=== PATIENT | male | born 1940 | race African-American/Black ===

== ENCOUNTER 2021-05-05 15:22 | Inpatient (IN) ==
[2021-05-05] MEDS ORDERED: SODIUM CHLORIDE 0.9% 1,000 ML IV STA (18:26)
[2021-05-05] MEDS ORDERED: PANTOPRAZOLE 40 MG VIAL IV STA (18:26)
[2021-05-05] MEDS ORDERED: ONDANSETRON 4 MG/2 ML VIAL IV STA (18:26)
[2021-05-05 18:33] LABS: Basophils # 0.1 10*3/uL (0.0-0.2); Basophils % 0.7 % (0.0-0.8); Eosinophils # 0.1 10*3/uL (0.0-0.87); Eosinophils % 1.1 % (0.00-10.9); Hematocrit 29.1 VOL% (42.0-52.0); Hemoglobin 9.2 GM/DL (14.0-18.0); Immature Granulocytes % 0.9 %; Immature Granulocytes Absolute 0.07 #; Lymphocytes # 1.2 10*3/uL (1.4-4.0); Lymphocytes % 15.3 % (21.2-54.2); Mean Corpuscular HGB Conc 31.6 GM/DL (32-36); Mean Corpuscular Volume 85.3 FL (87-102); Mean Platelet Volume 11.4 FL (9.6-12.0); Monocytes % 13.5 % (1.7-12.7); Neutrophils % 68.5 % (38.7-73.9); Platelet Count 230 T/CUMM (130-400); Red Blood Count 3.41 MC/CUMM (3.8-5.5); Red Cell Distribution Width 16.4 % (9.3-17.3)
[2021-05-05 18:51] LABS: Albumin 3.3 G/DL (3.4-5.0); Bilirubin,Total 0.9 MG/DL (0.2-1.0); Calcium 10.2 MG/DL (8.5-10.1); Osmolality,Calculated 313.1 MOS/KG (273-304); Potassium 3.6 MMOL/L (3.5-5.1); Total Protein 8.5 G/DL (6.4-8.2)
[2021-05-05] MEDS ORDERED: MAGNESIUM SULF RIDER 2 GM/50 ML PREMIX IV PRN (19:50)
[2021-05-05] MEDS ORDERED: MAGNESIUM SULF RIDER 4 GM/100 ML PREMIX IV PRN (19:50)
[2021-05-05] MEDS ORDERED: MORPHINE 4 MG/1 ML VIAL IV PRN (20:05)
[2021-05-05] MEDS ORDERED: hydrALAZINE 20 MG/1 ML VIAL IV STA (20:21)
[2021-05-05] MEDS ORDERED: BENZOCAINE/BUTAMBEN/TETRACAINE SPRAY 20 GM CAN TOP ONE (20:37)
[2021-05-05] MEDS: ONDANSETRON 4 MG/2 ML VIAL IV PRN (21:30)
[2021-05-05 21:41] LABS: Bilirubin,Urine Negative (Negative); Blood, Urine Negative (Negative); Glucose,Urine (UA) 50 mg/dL (Negative); Ketones,Urine Negative (Negative); Mucus,Urine Occasional /LPF (Occasional); Nitrite,Urine Negative (Negative); Protein,Urine >=500 MG/DL; Squamous Epithelial Cell,Urine Occasional /HPF (0-10); Urine Appearance CLEAR (Clear); Urine Color Yellow (Yellow); Urine Urobilinogen < 2.0 EU/DL (0.2-1.0)
[2021-05-06] MEDS: LACTATED RINGERS 1,000 ML IV SCH ×3 (00:12→18:37)
[2021-05-06 06:52] LABS: Basophils % 0.3 % (0.0-0.8); Eosinophils # 0.1 10*3/uL (0.0-0.87); Eosinophils % 0.7 % (0.00-10.9); Hematocrit 24.6 VOL% (42.0-52.0); Hemoglobin 7.8 GM/DL (14.0-18.0); Immature Granulocytes % 0.6 %; Immature Granulocytes Absolute 0.04 #; Lymphocytes # 0.8 10*3/uL (1.4-4.0); Lymphocytes % 10.9 % (21.2-54.2); Mean Corpuscular HGB Conc 31.7 GM/DL (32-36); Mean Corpuscular Volume 85.4 FL (87-102); Mean Platelet Volume 11.5 FL (9.6-12.0); Monocytes % 8.5 % (1.7-12.7); Platelet Count 193 T/CUMM (130-400); Red Blood Count 2.88 MC/CUMM (3.8-5.5); Red Cell Distribution Width 16.6 % (9.3-17.3); White Blood Count 7.1 T/CUMM (4-12)
[2021-05-06 06:56] LABS: Calcium 9.2 MG/DL (8.5-10.1); Osmolality,Calculated 313.7 MOS/KG (273-304); Potassium 3.1 MMOL/L (3.5-5.1)
[2021-05-06] MEDS ORDERED: DEXTROSE 50% 25 GM/50 ML VIAL IV PRN (07:54)
[2021-05-06] MEDS ORDERED: GLUCAGON 1 MG VIAL IM PRN (07:54)
[2021-05-06] MEDS: PANTOPRAZOLE 40 MG VIAL IV SCH (08:51)
[2021-05-06] MEDS: INSULIN LISPRO 100 UNIT/ML SUBCUT SCH ×3 (09:17→18:37)
[2021-05-06] MEDS ORDERED: ACETAMINOPHEN 325 MG TABLET PO PRN (09:40)
[2021-05-06] MEDS ORDERED: ALBUTEROL/IPRATROPIUM 3 ML NEB RESP TX PRN (09:40)
[2021-05-06] MEDS: POTASSIUM CHLORIDE RIDER 10 MEQ/100 ML PREMIX IV PRN ×2 (11:43→14:37)
[2021-05-06] MEDS: POTASSIUM CHLORIDE INJ 20 MEQ in LACTATED RINGERS 1,000 ML IV SCH ×2 (12:05→18:38)
[2021-05-06] MEDS: hydrALAZINE 20 MG/1 ML VIAL IV PRN (14:40)
[2021-05-06] MEDS: TERAZOSIN 5 MG CAPSULE PO SCH (20:15)
[2021-05-06] MEDS: METOPROLOL TARTRATE 25 MG TABLET PO SCH (20:15)
[2021-05-07] MEDS: INSULIN LISPRO 100 UNIT/ML SUBCUT SCH ×4 (00:49→18:08)
[2021-05-07] MEDS: hydrALAZINE 20 MG/1 ML VIAL IV PRN (00:55)
[2021-05-07] MEDS: HYDROmorphone 2 MG/1 ML VIAL IV PRN ×3 (02:15→23:08)
[2021-05-07] MEDS: LACTATED RINGERS 1,000 ML IV SCH ×4 (03:26→19:05)
[2021-05-07 05:16] LABS: Basophils % 0.4 % (0.0-0.8); Eosinophils # 0.2 10*3/uL (0.0-0.87); Eosinophils % 2.2 % (0.00-10.9); Hematocrit 25.2 VOL% (42.0-52.0); Hemoglobin 7.7 GM/DL (14.0-18.0); Immature Granulocytes % 0.3 %; Immature Granulocytes Absolute 0.03 #; Lymphocytes # 0.9 10*3/uL (1.4-4.0); Lymphocytes % 9.1 % (21.2-54.2); Mean Corpuscular HGB Conc 30.6 GM/DL (32-36); Mean Corpuscular Volume 87.8 FL (87-102); Mean Platelet Volume 10.8 FL (9.6-12.0); Monocytes % 7.5 % (1.7-12.7); Neutrophils % 80.5 % (38.7-73.9); Platelet Count 173 T/CUMM (130-400); Red Blood Count 2.87 MC/CUMM (3.8-5.5); Red Cell Distribution Width 16.9 % (9.3-17.3); White Blood Count 9.3 T/CUMM (4-12)
[2021-05-07] MEDS: ENOXAPARIN 40 MG/0.4 ML SYRINGE SUBCUT SCH (05:16)
[2021-05-07] MEDS: POTASSIUM CHLORIDE INJ 20 MEQ in LACTATED RINGERS 1,000 ML IV SCH ×2 (05:20→22:41)
[2021-05-07 05:32] LABS: Calcium 9.2 MG/DL (8.5-10.1); Osmolality,Calculated 309.6 MOS/KG (273-304); Potassium 3.7 MMOL/L (3.5-5.1)
[2021-05-07 05:36] LABS: Risk Ratio 2.63
[2021-05-07] MEDS ORDERED: amLODIPine 10 MG TABLET PO SCH (09:00)
[2021-05-07] MEDS: POTASSIUM CHLORIDE RIDER 10 MEQ/100 ML PREMIX IV PRN ×2 (10:08→11:54)
[2021-05-07] MEDS: PANTOPRAZOLE 40 MG VIAL IV SCH (10:08)
[2021-05-07] MEDS: ASPIRIN EC 81 MG TABLET PO SCH (10:10)
[2021-05-07] MEDS: METOPROLOL TARTRATE 25 MG TABLET PO SCH (10:10)
[2021-05-07] MEDS: allopurinoL 100 MG TABLET PO SCH (10:11)
[2021-05-07] MEDS: METOPROLOL TARTRATE 5 MG/5 ML VIAL IV SCH ×2 (11:54→18:09)
[2021-05-07] MEDS: ONDANSETRON 4 MG/2 ML VIAL IV PRN (13:26)
[2021-05-07] MEDS: TERAZOSIN 5 MG CAPSULE PO SCH (23:39)
[2021-05-08] MEDS: INSULIN LISPRO 100 UNIT/ML SUBCUT SCH ×4 (00:02→19:33)
[2021-05-08] MEDS: METOPROLOL TARTRATE 5 MG/5 ML VIAL IV SCH ×4 (00:06→19:33)
[2021-05-08] MEDS: LACTATED RINGERS 1,000 ML IV SCH ×4 (04:14→19:23)
[2021-05-08] MEDS: ENOXAPARIN 40 MG/0.4 ML SYRINGE SUBCUT SCH (05:14)
[2021-05-08 05:55] LABS: Basophils % 0.3 % (0.0-0.8); Eosinophils # 0.3 10*3/uL (0.0-0.87); Eosinophils % 5.9 % (0.00-10.9); Hematocrit 25.4 VOL% (42.0-52.0); Hemoglobin 7.8 GM/DL (14.0-18.0); Immature Granulocytes % 0.9 %; Immature Granulocytes Absolute 0.05 #; Lymphocytes # 0.5 10*3/uL (1.4-4.0); Lymphocytes % 8.8 % (21.2-54.2); Mean Corpuscular HGB Conc 30.7 GM/DL (32-36); Mean Corpuscular Volume 88.5 FL (87-102); Mean Platelet Volume 11.2 FL (9.6-12.0); Monocytes % 12.5 % (1.7-12.7); Neutrophils % 71.6 % (38.7-73.9); Platelet Count 183 T/CUMM (130-400); Red Blood Count 2.87 MC/CUMM (3.8-5.5); Red Cell Distribution Width 16.5 % (9.3-17.3); White Blood Count 5.8 T/CUMM (4-12)
[2021-05-08 06:11] LABS: Calcium 9.3 MG/DL (8.5-10.1); Osmolality,Calculated 311.4 MOS/KG (273-304); Potassium 4.4 MMOL/L (3.5-5.1)
[2021-05-08] MEDS: PANTOPRAZOLE 40 MG VIAL IV SCH (09:25)
[2021-05-08] MEDS: POTASSIUM CHLORIDE INJ 20 MEQ in LACTATED RINGERS 1,000 ML IV SCH (09:26)
[2021-05-08] MEDS: ASPIRIN CHEW 81 MG TABLET PO SCH (13:57)
[2021-05-08] MEDS: allopurinoL 100 MG TABLET PO SCH (13:57)
[2021-05-08] MEDS: ASPIRIN EC 81 MG TABLET PO SCH (14:30)
[2021-05-08] MEDS: FAT EMULSION 20% 250 ML IV SCH (16:49)
[2021-05-08] MEDS ORDERED: [UNRECOGNIZED DRUG - OTHER] IV SCH (17:00)
[2021-05-08] MEDS ORDERED: ZINC IV SCH (17:00)
[2021-05-08] MEDS ORDERED: MANGANESE IV SCH (17:00)
[2021-05-08] MEDS ORDERED: COPPER IV SCH (17:00)
[2021-05-08] MEDS ORDERED: INSULIN REGULAR IV SCH (17:00)
[2021-05-08] MEDS ORDERED: SELENIUM IV SCH (17:00)
[2021-05-08] MEDS: TERAZOSIN 5 MG CAPSULE PO SCH (21:10)
[2021-05-08] MEDS: HYDROmorphone 2 MG/1 ML VIAL IV PRN (23:59)
[2021-05-09] MEDS: METOPROLOL TARTRATE 5 MG/5 ML VIAL IV SCH ×4 (00:01→17:00)
[2021-05-09] MEDS: INSULIN LISPRO 100 UNIT/ML SUBCUT SCH ×4 (00:01→17:00)
[2021-05-09] MEDS: ENOXAPARIN 40 MG/0.4 ML SYRINGE SUBCUT SCH (05:08)
[2021-05-09] MEDS: LACTATED RINGERS 1,000 ML IV SCH ×3 (06:25→20:09)
[2021-05-09 07:18] LABS: Basophils % 0.3 % (0.0-0.8); Eosinophils # 0.2 10*3/uL (0.0-0.87); Eosinophils % 3.9 % (0.00-10.9); Hematocrit 27.2 VOL% (42.0-52.0); Hemoglobin 8.3 GM/DL (14.0-18.0); Immature Granulocytes % 0.3 %; Immature Granulocytes Absolute 0.02 #; Lymphocytes % 16.5 % (21.2-54.2); Mean Corpuscular HGB Conc 30.5 GM/DL (32-36); Mean Corpuscular Volume 87.7 FL (87-102); Monocytes % 10.6 % (1.7-12.7); Neutrophils % 68.4 % (38.7-73.9); Platelet Count 194 T/CUMM (130-400); Red Cell Distribution Width 16.5 % (9.3-17.3); White Blood Count 6.1 T/CUMM (4-12)
[2021-05-09 07:40] LABS: Calcium 9.2 MG/DL (8.5-10.1); Eosinophils 7 % (0-10); Hypochromasia 2+; Lymphocytes 12 % (20-55); Microcytosis 1+; Osmolality,Calculated 307.6 MOS/KG (273-304); Platelet Estimate Adequate; Potassium 3.8 MMOL/L (3.5-5.1); Segmented Neutrophils 69 % (50-85); Total Cells Counted 100
[2021-05-09] MEDS: allopurinoL 100 MG TABLET PO SCH (09:29)
[2021-05-09] MEDS: ASPIRIN CHEW 81 MG TABLET PO SCH (09:29)
[2021-05-09] MEDS: PANTOPRAZOLE 40 MG VIAL IV SCH (09:30)
[2021-05-09] MEDS: FAT EMULSION 20% 250 ML IV SCH (14:37)
[2021-05-09] MEDS ORDERED: INSULIN REGULAR IV SCH (17:00)
[2021-05-09] MEDS ORDERED: [UNRECOGNIZED DRUG - OTHER] IV SCH (17:00)
[2021-05-09] MEDS ORDERED: COPPER IV SCH (17:00)
[2021-05-09] MEDS ORDERED: SELENIUM IV SCH (17:00)
[2021-05-09] MEDS ORDERED: MANGANESE IV SCH (17:00)
[2021-05-09] MEDS ORDERED: ZINC IV SCH (17:00)
[2021-05-09] MEDS: TERAZOSIN 5 MG CAPSULE PO SCH (20:13)
[2021-05-10] MEDS: INSULIN LISPRO 100 UNIT/ML SUBCUT SCH ×4 (00:53→17:50)
[2021-05-10] MEDS: METOPROLOL TARTRATE 5 MG/5 ML VIAL IV SCH ×4 (00:54→17:51)
[2021-05-10] MEDS: LACTATED RINGERS 1,000 ML IV SCH (01:59)
[2021-05-10] MEDS: ENOXAPARIN 40 MG/0.4 ML SYRINGE SUBCUT SCH (04:51)
[2021-05-10 05:27] LABS: Basophils % 0.3 % (0.0-0.8); Eosinophils # 0.2 10*3/uL (0.0-0.87); Eosinophils % 3.9 % (0.00-10.9); Hematocrit 24.1 VOL% (42.0-52.0); Hemoglobin 7.7 GM/DL (14.0-18.0); Immature Granulocytes % 0.5 %; Immature Granulocytes Absolute 0.03 #; Lymphocytes # 1.4 10*3/uL (1.4-4.0); Lymphocytes % 22.4 % (21.2-54.2); Mean Corpuscular Volume 85.8 FL (87-102); Mean Platelet Volume 10.7 FL (9.6-12.0); Monocytes % 10.6 % (1.7-12.7); Neutrophils % 62.3 % (38.7-73.9); Platelet Count 178 T/CUMM (130-400); Red Blood Count 2.81 MC/CUMM (3.8-5.5); Red Cell Distribution Width 16.2 % (9.3-17.3); White Blood Count 6.1 T/CUMM (4-12)
[2021-05-10 05:38] LABS: Calcium 8.9 MG/DL (8.5-10.1); Potassium 3.5 MMOL/L (3.5-5.1)
[2021-05-10 05:59] LABS: Hypochromasia 2+; Target Cells Slight
[2021-05-10 06:00] LABS: Microcytosis 1+; Platelet Estimate Adequate; Polychromasia Slight
[2021-05-10] MEDS ORDERED: SODIUM CHLOR 0.45% KCL 20 MEQ 20 MEQ/1,000 ML BAG IV SCH (07:30)
[2021-05-10] MEDS: allopurinoL 100 MG TABLET PO SCH (08:45)
[2021-05-10] MEDS: ASPIRIN CHEW 81 MG TABLET PO SCH (08:45)
[2021-05-10] MEDS: PANTOPRAZOLE 40 MG VIAL IV SCH (08:45)
[2021-05-10] MEDS: SODIUM CHLORIDE 0.45% 1,000 ML IV SCH (11:44)
[2021-05-10] MEDS: FAT EMULSION 20% 250 ML IV SCH (13:34)
[2021-05-10] MEDS: TERAZOSIN 5 MG CAPSULE PO SCH (21:00)
[2021-05-10] MEDS: HYDROmorphone 2 MG/1 ML VIAL IV PRN (21:06)
[2021-05-11] MEDS: METOPROLOL TARTRATE 5 MG/5 ML VIAL IV SCH ×4 (00:44→17:55)
[2021-05-11] MEDS: INSULIN LISPRO 100 UNIT/ML SUBCUT SCH ×4 (00:56→17:55)
[2021-05-11] MEDS: ENOXAPARIN 40 MG/0.4 ML SYRINGE SUBCUT SCH (04:56)
[2021-05-11] MEDS: SODIUM CHLORIDE 0.45% 1,000 ML IV SCH (05:07)
[2021-05-11 05:58] LABS: Basophils % 0.3 % (0.0-0.8); Eosinophils # 0.3 10*3/uL (0.0-0.87); Eosinophils % 4.2 % (0.00-10.9); Hematocrit 24.8 VOL% (42.0-52.0); Hemoglobin 7.7 GM/DL (14.0-18.0); Immature Granulocytes % 0.8 %; Immature Granulocytes Absolute 0.05 #; Lymphocytes # 1.9 10*3/uL (1.4-4.0); Lymphocytes % 30.9 % (21.2-54.2); Mean Corpuscular Volume 85.8 FL (87-102); Monocytes % 8.6 % (1.7-12.7); Neutrophils % 55.2 % (38.7-73.9); Platelet Count 201 T/CUMM (130-400); Red Blood Count 2.89 MC/CUMM (3.8-5.5); Red Cell Distribution Width 15.9 % (9.3-17.3); White Blood Count 6.3 T/CUMM (4-12)
[2021-05-11 06:20] LABS: Calcium 8.4 MG/DL (8.5-10.1); Osmolality,Calculated 300.8 MOS/KG (273-304); Potassium 3.1 MMOL/L (3.5-5.1)
[2021-05-11] MEDS: ROSUVASTATIN 20 MG TABLET PO SCH (09:17)
[2021-05-11] MEDS: allopurinoL 100 MG TABLET PO SCH (09:17)
[2021-05-11] MEDS: ASPIRIN CHEW 81 MG TABLET PO SCH (09:17)
[2021-05-11] MEDS: PANTOPRAZOLE 40 MG VIAL IV SCH (09:17)
[2021-05-11] MEDS ORDERED: POTASSIUM CHLORIDE 20 MEQ TABLET PO ONE (09:28)
[2021-05-11] MEDS: ONDANSETRON 4 MG/2 ML VIAL IV PRN (14:59)
[2021-05-11] MEDS: HYDROmorphone 2 MG/1 ML VIAL IV PRN (16:29)
[2021-05-11] MEDS: LACTATED RINGERS 1,000 ML IV SCH (17:55)
[2021-05-11] MEDS: POLYETHYLENE GLYCOL POWDER 17 GM PACK PO SCH (18:21)
[2021-05-11] MEDS: TERAZOSIN 5 MG CAPSULE PO SCH (21:46)
[2021-05-11] MEDS: DOCUSATE SODIUM 100 MG CAPSULE PO SCH (21:47)
[2021-05-12] MEDS: INSULIN LISPRO 100 UNIT/ML SUBCUT SCH ×4 (00:51→17:29)
[2021-05-12] MEDS: METOPROLOL TARTRATE 5 MG/5 ML VIAL IV SCH ×4 (00:52→17:30)
[2021-05-12] MEDS: LACTATED RINGERS 1,000 ML IV SCH (01:33)
[2021-05-12] MEDS: ENOXAPARIN 40 MG/0.4 ML SYRINGE SUBCUT SCH (04:39)
[2021-05-12 05:36] LABS: Basophils % 0.3 % (0.0-0.8); Eosinophils # 0.1 10*3/uL (0.0-0.87); Eosinophils % 1.6 % (0.00-10.9); Hematocrit 23.5 VOL% (42.0-52.0); Hemoglobin 7.3 GM/DL (14.0-18.0); Immature Granulocytes % 0.6 %; Immature Granulocytes Absolute 0.04 #; Lymphocytes # 1.3 10*3/uL (1.4-4.0); Lymphocytes % 18.1 % (21.2-54.2); Mean Corpuscular HGB Conc 31.1 GM/DL (32-36); Mean Corpuscular Volume 86.4 FL (87-102); Mean Platelet Volume 11.6 FL (9.6-12.0); Monocytes % 10.1 % (1.7-12.7); Neutrophils % 69.3 % (38.7-73.9); Platelet Count 209 T/CUMM (130-400); Red Blood Count 2.72 MC/CUMM (3.8-5.5); Red Cell Distribution Width 15.9 % (9.3-17.3); White Blood Count 6.9 T/CUMM (4-12)
[2021-05-12 05:47] LABS: Calcium 8.5 MG/DL (8.5-10.1); Potassium 3.1 MMOL/L (3.5-5.1)
[2021-05-12 06:51] LABS: Hypochromasia 2+; Microcytosis Slight; Platelet Estimate Adequate; Target Cells 1+
[2021-05-12] MEDS: POLYETHYLENE GLYCOL POWDER 17 GM PACK PO SCH (09:07)
[2021-05-12] MEDS: DOCUSATE SODIUM 100 MG CAPSULE PO SCH ×2 (09:11→21:07)
[2021-05-12] MEDS: ASPIRIN CHEW 81 MG TABLET PO SCH (09:11)
[2021-05-12] MEDS: ROSUVASTATIN 20 MG TABLET PO SCH (09:11)
[2021-05-12] MEDS: allopurinoL 100 MG TABLET PO SCH (09:12)
[2021-05-12] MEDS: PANTOPRAZOLE 40 MG VIAL IV SCH (09:12)
[2021-05-12] MEDS: POTASSIUM CHLORIDE 20 MEQ TABLET PO PRN ×4 (15:39→19:02)
[2021-05-12] MEDS: TERAZOSIN 5 MG CAPSULE PO SCH (21:07)
[2021-05-13] MEDS: INSULIN LISPRO 100 UNIT/ML SUBCUT SCH ×5 (00:52→23:57)
[2021-05-13] MEDS: METOPROLOL TARTRATE 5 MG/5 ML VIAL IV SCH ×4 (00:53→17:50)
[2021-05-13] MEDS: ENOXAPARIN 40 MG/0.4 ML SYRINGE SUBCUT SCH (04:07)
[2021-05-13] MEDS: ROSUVASTATIN 20 MG TABLET PO SCH (08:47)
[2021-05-13] MEDS: ASPIRIN CHEW 81 MG TABLET PO SCH (08:47)
[2021-05-13] MEDS: allopurinoL 100 MG TABLET PO SCH (08:47)
[2021-05-13] MEDS: POLYETHYLENE GLYCOL POWDER 17 GM PACK PO SCH (08:48)
[2021-05-13] MEDS: PANTOPRAZOLE 40 MG VIAL IV SCH (08:48)
[2021-05-13] MEDS: DOCUSATE SODIUM 100 MG CAPSULE PO SCH ×2 (08:48→21:04)
[2021-05-13] MEDS: hydrALAZINE 20 MG/1 ML VIAL IV PRN (11:42)
[2021-05-13 16:34] LABS: Basophils % 0.3 % (0.0-0.8); Eosinophils # 0.1 10*3/uL (0.0-0.87); Eosinophils % 1.2 % (0.00-10.9); Hematocrit 29.3 VOL% (42.0-52.0); Hemoglobin 8.8 GM/DL (14.0-18.0); Immature Granulocytes % 1.4 %; Immature Granulocytes Absolute 0.13 #; Lymphocytes # 1.4 10*3/uL (1.4-4.0); Lymphocytes % 14.9 % (21.2-54.2); Mean Corpuscular Volume 89.3 FL (87-102); Mean Platelet Volume 10.9 FL (9.6-12.0); Monocytes % 10.7 % (1.7-12.7); Neutrophils % 71.5 % (38.7-73.9); Platelet Count 140 T/CUMM (130-400); Red Blood Count 3.28 MC/CUMM (3.8-5.5); Red Cell Distribution Width 16.5 % (9.3-17.3); White Blood Count 9.3 T/CUMM (4-12)
[2021-05-13 16:53] LABS: Calcium 8.9 MG/DL (8.5-10.1); Osmolality,Calculated 288.4 MOS/KG (273-304); Potassium 4.2 MMOL/L (3.5-5.1)
[2021-05-13] MEDS: TERAZOSIN 5 MG CAPSULE PO SCH (21:05)
[2021-05-14 05:06] LABS: Basophils % 0.2 % (0.0-0.8); Eosinophils # 0.1 10*3/uL (0.0-0.87); Eosinophils % 1.4 % (0.00-10.9); Hemoglobin 7.3 GM/DL (14.0-18.0); Immature Granulocytes % 0.7 %; Immature Granulocytes Absolute 0.07 #; Lymphocytes # 1.1 10*3/uL (1.4-4.0); Lymphocytes % 11.8 % (21.2-54.2); Mean Corpuscular HGB Conc 31.7 GM/DL (32-36); Mean Corpuscular Volume 84.2 FL (87-102); Mean Platelet Volume 11.8 FL (9.6-12.0); Monocytes % 10.4 % (1.7-12.7); Neutrophils % 75.5 % (38.7-73.9); Platelet Count 203 T/CUMM (130-400); Red Blood Count 2.73 MC/CUMM (3.8-5.5); Red Cell Distribution Width 15.7 % (9.3-17.3); White Blood Count 9.6 T/CUMM (4-12)
[2021-05-14 05:33] LABS: Bilirubin,Total 0.6 MG/DL (0.2-1.0); Calcium 8.3 MG/DL (8.5-10.1); Osmolality,Calculated 292.3 MOS/KG (273-304); Potassium 3.6 MMOL/L (3.5-5.1)
[2021-05-14] MEDS: INSULIN LISPRO 100 UNIT/ML SUBCUT SCH ×2 (05:50→12:33)
[2021-05-14] MEDS: METOPROLOL TARTRATE 5 MG/5 ML VIAL IV SCH ×2 (05:50)
[2021-05-14] MEDS: ENOXAPARIN 40 MG/0.4 ML SYRINGE SUBCUT SCH (08:33)
[2021-05-14] MEDS: POTASSIUM CHLORIDE 20 MEQ TABLET PO PRN ×2 (08:33→10:01)
[2021-05-14] MEDS: POLYETHYLENE GLYCOL POWDER 17 GM PACK PO SCH (08:34)
[2021-05-14] MEDS: PANTOPRAZOLE 40 MG VIAL IV SCH (08:34)
[2021-05-14] MEDS: allopurinoL 100 MG TABLET PO SCH (08:34)
[2021-05-14] MEDS: DOCUSATE SODIUM 100 MG CAPSULE PO SCH (08:34)
[2021-05-14] MEDS: ASPIRIN CHEW 81 MG TABLET PO SCH (08:34)
[2021-05-14] MEDS: ROSUVASTATIN 20 MG TABLET PO SCH (08:35)
[2021-05-14 12:25] VITALS: BP 155/54
== END 2021-05-14 15:05 | disposition home health service (06) | DRG 389 ==
LOC: N.ED 15:22 → N.EDINP 20:02 → N.3E 21:30
PROVIDERS: ADMIT Surgery; ATTEND Surgery

== ENCOUNTER 2021-07-15 19:21 | Inpatient (IN) ==
[2021-07-16 00:47] LABS: Basophils # 0.1 10*3/uL (0.0-0.2); Basophils % 0.9 % (0.0-0.8); Eosinophils # 0.1 10*3/uL (0.0-0.87); Eosinophils % 0.9 % (0.00-10.9); Hematocrit 23.2 VOL% (42.0-52.0); Hemoglobin 7.1 GM/DL (14.0-18.0); Immature Granulocytes % 0.4 %; Immature Granulocytes Absolute 0.02 #; Lymphocytes # 0.8 10*3/uL (1.4-4.0); Lymphocytes % 13.9 % (21.2-54.2); Mean Corpuscular HGB Conc 30.6 GM/DL (32-36); Mean Corpuscular Volume 83.8 FL (87-102); Mean Platelet Volume 11.5 FL (9.6-12.0); Neutrophils % 70.9 % (38.7-73.9); Platelet Count 242 T/CUMM (130-400); Red Blood Count 2.77 MC/CUMM (3.8-5.5); Red Cell Distribution Width 19.7 % (9.3-17.3); White Blood Count 5.5 T/CUMM (4-12)
[2021-07-16 01:10] LABS: Albumin 2.8 G/DL (3.4-5.0); Bilirubin,Total 0.5 MG/DL (0.20-1.00); Osmolality,Calculated 325.4 MOS/KG (273-304); Potassium 4.7 MMOL/L (3.5-5.1); Total Protein 7.3 G/DL (6.4-8.2)
[2021-07-16] MEDS ORDERED: GLUCAGON 1 MG VIAL IM PRN (03:06)
[2021-07-16] MEDS ORDERED: DEXTROSE 50% 25 GM/50 ML VIAL IV PRN (03:06)
[2021-07-16] MEDS ORDERED: ACETAMINOPHEN 325 MG TABLET PO PRN (03:06)
[2021-07-16] MEDS ORDERED: ONDANSETRON 4 MG/2 ML VIAL IV PRN (03:06)
[2021-07-16] MEDS ORDERED: SODIUM PHOSPHATE ENEMA 133 ML BOTTLE RECTAL ONE (04:40)
[2021-07-16] MEDS ORDERED: CLOPIDOGREL 75 MG TABLET PO SCH (09:00)
[2021-07-16] MEDS: ROSUVASTATIN 20 MG TABLET PO SCH (09:04)
[2021-07-16] MEDS: METOPROLOL TARTRATE 25 MG TABLET PO SCH ×2 (09:05→20:44)
[2021-07-16] MEDS: AMIODARONE 200 MG TABLET PO SCH ×2 (09:05→20:44)
[2021-07-16] MEDS: amLODIPine 10 MG TABLET PO SCH (09:06)
[2021-07-16] MEDS: PANTOPRAZOLE 40 MG TABLET PO SCH (09:06)
[2021-07-16] MEDS: APIXABAN 2.5 MG TABLET PO SCH (09:06)
[2021-07-16] MEDS: allopurinoL 100 MG TABLET PO SCH (09:07)
[2021-07-16] MEDS: INSULIN REGULAR 100 UNIT/ML SUBCUT SCH ×4 (09:11→20:45)
[2021-07-16] MEDS: DOCUSATE SODIUM 100 MG CAPSULE PO SCH ×2 (09:11→20:44)
[2021-07-16] MEDS: LACTULOSE 20 GM/30 ML UDCUP PO SCH ×4 (09:12→18:42)
[2021-07-16] MEDS: ASCORBIC ACID 500 MG TABLET PO SCH ×2 (12:46→20:44)
[2021-07-16] MEDS: POLYETHYLENE GLYCOL POWDER 17 GM PACK PO SCH (12:46)
[2021-07-16] MEDS ORDERED: SODIUM CHLORIDE 0.9% 1,000 ML IV PRN (13:56)
[2021-07-16] MEDS ORDERED: FUROSEMIDE 40 MG/4 ML VIAL IV ONE (13:58)
[2021-07-16 16:49] LABS: Bilirubin,Urine Negative (Negative); Blood, Urine Negative (Negative); Glucose,Urine (UA) 50 mg/dL (Negative); Ketones,Urine Negative (Negative); Nitrite,Urine Negative (Negative); Protein,Urine 100 MG/DL; RBC,Urine 1 /HPF (0-4); Squamous Epithelial Cell,Urine Occasional /HPF (0-10); Urine Appearance Slightly Hazy (Clear); Urine Color Yellow (Yellow); Urine Specific Gravity 1.014 (1.001-1.035); Urine Urobilinogen < 2.0 EU/DL (0.2-1.0)
[2021-07-16 19:49] LABS: Immunoglobulin A 461 MG/DL (70-400); Immunoglobulin G 1950 MG/DL (700-1600); Immunoglobulin M < 21 MG/DL (40-230); Total Protein 7.9 G/DL (6.4-8.2)
[2021-07-16] MEDS: TERAZOSIN 5 MG CAPSULE PO SCH (20:43)
[2021-07-16] MEDS: INSULIN GLARGINE 100 UNIT/ML SUBCUT SCH (20:45)
[2021-07-16] MEDS: FUROSEMIDE 40 MG/4 ML VIAL IV SCH (21:23)
[2021-07-17] MEDS: LACTULOSE 20 GM/30 ML UDCUP PO SCH ×8 (01:22→22:44)
[2021-07-17] MEDS: FUROSEMIDE 40 MG/4 ML VIAL IV SCH ×4 (01:43→18:48)
[2021-07-17 03:28] LABS: Basophils # 0.1 10*3/uL (0.0-0.2); Basophils % 0.7 % (0.0-0.8); Eosinophils # 0.1 10*3/uL (0.0-0.87); Eosinophils % 1.1 % (0.00-10.9); Hematocrit 28.9 VOL% (42.0-52.0); Immature Granulocytes % 0.4 %; Immature Granulocytes Absolute 0.03 #; Lymphocytes # 0.4 10*3/uL (1.4-4.0); Lymphocytes % 5.3 % (21.2-54.2); Mean Corpuscular HGB Conc 31.5 GM/DL (32-36); Mean Corpuscular Volume 84.8 FL (87-102); Mean Platelet Volume 11.3 FL (9.6-12.0); Monocytes % 11.9 % (1.7-12.7); NRBC # 0.02 10*3/uL; Neutrophils % 80.6 % (38.7-73.9); Platelet Count 227 T/CUMM (130-400); Red Cell Distribution Width 18.2 % (9.3-17.3); White Blood Count 7.1 T/CUMM (4-12)
[2021-07-17 03:29] LABS: Hemoglobin 9.1 GM/DL (14.0-18.0); Red Blood Count 3.41 MC/CUMM (3.8-5.5)
[2021-07-17 03:49] LABS: Risk Ratio 2.9; VLDL Cholesterol 11.8 MG/DL
[2021-07-17 04:00] LABS: Calcium 9.1 MG/DL (8.5-10.1); Osmolality,Calculated 320.3 MOS/KG (273-304)
[2021-07-17] MEDS: POLYETHYLENE GLYCOL POWDER 17 GM PACK PO SCH (09:11)
[2021-07-17] MEDS: METOPROLOL TARTRATE 25 MG TABLET PO SCH ×2 (09:12→21:02)
[2021-07-17] MEDS: allopurinoL 100 MG TABLET PO SCH (09:12)
[2021-07-17] MEDS: ASCORBIC ACID 500 MG TABLET PO SCH ×2 (09:12→21:02)
[2021-07-17] MEDS: ROSUVASTATIN 20 MG TABLET PO SCH (09:12)
[2021-07-17] MEDS: DOCUSATE SODIUM 100 MG CAPSULE PO SCH ×2 (09:13→21:02)
[2021-07-17] MEDS: amLODIPine 10 MG TABLET PO SCH (09:13)
[2021-07-17] MEDS: AMIODARONE 200 MG TABLET PO SCH ×2 (09:13→21:02)
[2021-07-17] MEDS: PANTOPRAZOLE 40 MG TABLET PO SCH (09:13)
[2021-07-17 09:42] LABS: Immunoglobulin A (Chem) 461 MG/DL (70-400); Immunoglobulin G (Chem) 1950 MG/DL (700-1600); Immunoglobulin M (Chem) < 21 MG/DL (40-230); Total Protein (Chem) 7.9 G/DL (6.4-8.3)
[2021-07-17 09:48] LABS: Albumin (SPE) 3.9 G/DL (3.2-5.3); Albumin (SPE) Rel % 48.8 %; Alpha 1 (SPE) 0.2 G/DL (0.1-0.4); Alpha 2 (SPE) Rel % 12.7 %; Beta (SPE) 0.9 G/DL (0.5-1.1); Gamma (SPE) 1.9 G/DL (0.7-1.7); Gamma (SPE) Rel % 24.5 %
[2021-07-17] MEDS: INSULIN REGULAR 100 UNIT/ML SUBCUT SCH ×4 (10:12→21:52)
[2021-07-17 11:46] LABS: % Iron Saturation 5.3 % (18-50)
[2021-07-17 12:13] LABS: Folate 22.87 NG/ML (5.38-24.0); Vitamin B12 > 2000 PG/ML (211-911)
[2021-07-17] MEDS: INSULIN GLARGINE 100 UNIT/ML SUBCUT SCH (21:02)
[2021-07-17] MEDS: APIXABAN 2.5 MG TABLET PO SCH (21:02)
[2021-07-17] MEDS: TERAZOSIN 5 MG CAPSULE PO SCH (21:02)
[2021-07-18] MEDS: FUROSEMIDE 40 MG/4 ML VIAL IV SCH ×4 (00:20→21:40)
[2021-07-18] MEDS: LACTULOSE 20 GM/30 ML UDCUP PO SCH ×5 (03:45→20:25)
[2021-07-18 05:26] LABS: Basophils % 0.4 % (0.0-0.8); Eosinophils # 0.1 10*3/uL (0.0-0.87); Eosinophils % 1.3 % (0.00-10.9); Hematocrit 27.6 VOL% (42.0-52.0); Hemoglobin 8.7 GM/DL (14.0-18.0); Immature Granulocytes % 0.5 %; Immature Granulocytes Absolute 0.04 #; Lymphocytes # 1.1 10*3/uL (1.4-4.0); Lymphocytes % 13.6 % (21.2-54.2); Mean Corpuscular HGB Conc 31.5 GM/DL (32-36); Mean Corpuscular Volume 84.4 FL (87-102); Mean Platelet Volume 9.8 FL (9.6-12.0); Monocytes % 14.4 % (1.7-12.7); NRBC # 0.02 10*3/uL; Neutrophils % 69.8 % (38.7-73.9); Platelet Count 205 T/CUMM (130-400); Red Blood Count 3.27 MC/CUMM (3.8-5.5); Red Cell Distribution Width 18.4 % (9.3-17.3); White Blood Count 7.9 T/CUMM (4-12)
[2021-07-18 05:54] LABS: Albumin 2.4 G/DL (3.4-5.0); Bilirubin,Total 0.6 MG/DL (0.20-1.00); Potassium 3.7 MMOL/L (3.5-5.1); Total Protein 6.9 G/DL (6.4-8.2)
[2021-07-18] MEDS: POLYETHYLENE GLYCOL POWDER 17 GM PACK PO SCH (09:23)
[2021-07-18] MEDS: APIXABAN 2.5 MG TABLET PO SCH ×2 (09:23→21:39)
[2021-07-18] MEDS: PANTOPRAZOLE 40 MG TABLET PO SCH (09:24)
[2021-07-18] MEDS: allopurinoL 100 MG TABLET PO SCH (09:24)
[2021-07-18] MEDS: AMIODARONE 200 MG TABLET PO SCH ×2 (09:24→21:39)
[2021-07-18] MEDS: ASPIRIN EC 81 MG TABLET PO SCH (09:24)
[2021-07-18] MEDS: ASCORBIC ACID 500 MG TABLET PO SCH ×2 (09:24→21:39)
[2021-07-18] MEDS: METOPROLOL TARTRATE 25 MG TABLET PO SCH ×2 (09:24→21:39)
[2021-07-18] MEDS: ROSUVASTATIN 20 MG TABLET PO SCH (09:24)
[2021-07-18] MEDS: DOCUSATE SODIUM 100 MG CAPSULE PO SCH ×2 (09:24→21:39)
[2021-07-18] MEDS: amLODIPine 10 MG TABLET PO SCH (09:25)
[2021-07-18] MEDS: INSULIN REGULAR 100 UNIT/ML SUBCUT SCH ×4 (13:22→21:38)
[2021-07-18] MEDS: TERAZOSIN 5 MG CAPSULE PO SCH (21:39)
[2021-07-19] MEDS: LACTULOSE 20 GM/30 ML UDCUP PO SCH ×5 (00:30→17:15)
[2021-07-19] MEDS: FUROSEMIDE 40 MG/4 ML VIAL IV SCH ×3 (06:31→22:18)
[2021-07-19] MEDS: INSULIN REGULAR 100 UNIT/ML SUBCUT SCH ×4 (09:42→20:52)
[2021-07-19] MEDS: ASCORBIC ACID 500 MG TABLET PO SCH ×2 (09:44→20:51)
[2021-07-19] MEDS: APIXABAN 2.5 MG TABLET PO SCH ×2 (09:44→20:51)
[2021-07-19] MEDS: ROSUVASTATIN 20 MG TABLET PO SCH (09:44)
[2021-07-19] MEDS: amLODIPine 10 MG TABLET PO SCH (09:45)
[2021-07-19] MEDS: METOPROLOL TARTRATE 25 MG TABLET PO SCH ×2 (09:45→20:51)
[2021-07-19] MEDS: ASPIRIN EC 81 MG TABLET PO SCH (09:45)
[2021-07-19] MEDS: FERROUS SULFATE 325 MG TABLET PO SCH (09:45)
[2021-07-19] MEDS: PANTOPRAZOLE 40 MG TABLET PO SCH ×2 (09:46→17:42)
[2021-07-19] MEDS: allopurinoL 100 MG TABLET PO SCH (09:46)
[2021-07-19] MEDS: AMIODARONE 200 MG TABLET PO SCH ×2 (09:46→20:51)
[2021-07-19] MEDS: DOCUSATE SODIUM 100 MG CAPSULE PO SCH ×2 (09:46→20:52)
[2021-07-19] MEDS: POLYETHYLENE GLYCOL POWDER 17 GM PACK PO SCH ×2 (09:47→20:52)
[2021-07-19] MEDS: ALBUTEROL/IPRATROPIUM 3 ML NEB RESP TX SCH ×3 (15:13→23:40)
[2021-07-19] MEDS: metOLazone 5 MG TABLET PO SCH (17:42)
[2021-07-19] MEDS: TERAZOSIN 5 MG CAPSULE PO SCH (20:51)
[2021-07-20] MEDS: ALBUTEROL/IPRATROPIUM 3 ML NEB RESP TX SCH ×6 (02:58→23:00)
[2021-07-20] MEDS: FUROSEMIDE 40 MG/4 ML VIAL IV SCH ×3 (06:12→21:44)
[2021-07-20 06:15] LABS: Basophils % 0.5 % (0.0-0.8); Eosinophils # 0.1 10*3/uL (0.0-0.87); Eosinophils % 1.3 % (0.00-10.9); Hematocrit 27.5 VOL% (42.0-52.0); Hemoglobin 8.5 GM/DL (14.0-18.0); Lymphocytes # 0.5 10*3/uL (1.4-4.0); Lymphocytes % 8.4 % (21.2-54.2); Mean Corpuscular HGB Conc 30.9 GM/DL (32-36); Mean Corpuscular Volume 84.9 FL (87-102); Mean Platelet Volume 11.4 FL (9.6-12.0); Monocytes % 12.9 % (1.7-12.7); Neutrophils % 76.4 % (38.7-73.9); Platelet Count 214 T/CUMM (130-400); Red Blood Count 3.24 MC/CUMM (3.8-5.5); Red Cell Distribution Width 18.6 % (9.3-17.3); White Blood Count 6.2 T/CUMM (4-12)
[2021-07-20 06:36] LABS: Albumin 2.8 G/DL (3.4-5.0); Bilirubin,Total 0.5 MG/DL (0.20-1.00); Calcium 9.1 MG/DL (8.5-10.1); Potassium 4.5 MMOL/L (3.5-5.1); Total Protein 7.3 G/DL (6.4-8.2)
[2021-07-20] MEDS ORDERED: FAMOTIDINE 20 MG TABLET PO SCH (09:00)
[2021-07-20] MEDS: INSULIN REGULAR 100 UNIT/ML SUBCUT SCH ×4 (09:33→20:35)
[2021-07-20] MEDS: ASCORBIC ACID 500 MG TABLET PO SCH ×2 (10:33→20:35)
[2021-07-20] MEDS: allopurinoL 100 MG TABLET PO SCH (10:33)
[2021-07-20] MEDS: ASPIRIN EC 81 MG TABLET PO SCH (10:34)
[2021-07-20] MEDS: AMIODARONE 200 MG TABLET PO SCH ×2 (10:34→21:44)
[2021-07-20] MEDS: ROSUVASTATIN 20 MG TABLET PO SCH (10:34)
[2021-07-20] MEDS: METOPROLOL TARTRATE 25 MG TABLET PO SCH ×2 (10:34→20:35)
[2021-07-20] MEDS: PANTOPRAZOLE 40 MG TABLET PO SCH (10:34)
[2021-07-20] MEDS: FERROUS SULFATE 325 MG TABLET PO SCH (10:34)
[2021-07-20] MEDS: DOCUSATE SODIUM 100 MG CAPSULE PO SCH ×2 (10:35→20:36)
[2021-07-20] MEDS: metOLazone 5 MG TABLET PO SCH (10:40)
[2021-07-20] MEDS: amLODIPine 10 MG TABLET PO SCH ×2 (10:41→10:45)
[2021-07-20] MEDS: POLYETHYLENE GLYCOL POWDER 17 GM PACK PO SCH ×2 (10:46→20:36)
[2021-07-20] MEDS ORDERED: ALUM/MAG/SIMETH/LIDO VISC 1:1 30 ML BOTTLE PO ONE (11:06)
[2021-07-20] MEDS ORDERED: NITROGLYCERIN SL 0.4 MG TABLET SL PRN (11:06)
[2021-07-20] MEDS ORDERED: AMIODARONE INJ 450 MG in DEXTROSE 5% 241 ML IV SCH (12:00)
[2021-07-20] MEDS ORDERED: FUROSEMIDE 100 MG/10 ML VIAL IV ONE (12:45)
[2021-07-20] MEDS: DILTIAZEM INJ 100 MG in SODIUM CHLORIDE 0.9% 100 ML IV SCH (13:05)
[2021-07-20] MEDS: cefTRIAXone 1,000 MG in SODIUM CHLORIDE 0.9% 100 ML IV SCH (14:38)
[2021-07-20] MEDS: TERAZOSIN 5 MG CAPSULE PO SCH (20:36)
[2021-07-21] MEDS: ALBUTEROL/IPRATROPIUM 3 ML NEB RESP TX SCH ×5 (01:40→19:46)
[2021-07-21] MEDS: FUROSEMIDE 40 MG/4 ML VIAL IV SCH ×3 (05:42→21:03)
[2021-07-21 05:48] LABS: Basophils % 0.1 % (0.0-0.8); Eosinophils % 0.1 % (0.00-10.9); Hematocrit 26.4 VOL% (42.0-52.0); Hemoglobin 8.1 GM/DL (14.0-18.0); Immature Granulocytes % 0.5 %; Immature Granulocytes Absolute 0.04 #; Lymphocytes # 0.3 10*3/uL (1.4-4.0); Lymphocytes % 4.1 % (21.2-54.2); Mean Corpuscular HGB Conc 30.7 GM/DL (32-36); Mean Corpuscular Volume 84.9 FL (87-102); Monocytes % 12.1 % (1.7-12.7); NRBC # 0.09 10*3/uL; Neutrophils % 83.1 % (38.7-73.9); Platelet Count 204 T/CUMM (130-400); Red Blood Count 3.11 MC/CUMM (3.8-5.5); White Blood Count 7.8 T/CUMM (4-12)
[2021-07-21 06:06] LABS: Albumin 2.7 G/DL (3.4-5.0); Bilirubin,Direct 0.21 MG/DL (0.0-0.20); Bilirubin,Indirect 0.3 MG/DL (0.0-1.0); Bilirubin,Total 0.5 MG/DL (0.20-1.00); Calcium 8.1 MG/DL (8.5-10.1); Osmolality,Calculated 315.4 MOS/KG (273-304); Potassium 5.3 MMOL/L (3.5-5.1); Total Protein 7.2 G/DL (6.4-8.2)
[2021-07-21] MEDS ORDERED: BUPIVACAINE MPF 0.25% 30 ML VIAL ONE (06:18)
[2021-07-21] MEDS ORDERED: TISSUE ADHESIVE 1 EACH APPLICATOR TOP ONE (06:18)
[2021-07-21] MEDS ORDERED: HEPARIN 5,000 UNIT/1 ML VIAL ONE (06:18)
[2021-07-21] MEDS ORDERED: LIDOCAINE 1%/EPI INJ 20 ML VIAL ONE (06:18)
[2021-07-21] MEDS ORDERED: LIDOCAINE 2% 5 ML VIAL ONE (07:00)
[2021-07-21] MEDS ORDERED: propofoL 200 MG/20 ML VIAL IV ONE ×2 (07:00→07:06)
[2021-07-21] MEDS ORDERED: MIDAZOLAM 2 MG/2 ML VIAL ONE ×2 (07:01→07:37)
[2021-07-21] MEDS ORDERED: fentaNYL 100 MCG/2 ML VIAL ONE (07:01)
[2021-07-21 07:32] LABS: Anisocytosis 3+; Band Neutrophils 2 % (0-10); Lymphocytes 4 % (20-55); Nucleated Red Blood Cells 3 (0-5); Platelet Estimate Normal; Segmented Neutrophils 83 % (50-85); Target Cells 1+; Total Cells Counted 100
[2021-07-21 07:33] LABS: Hypochromasia Slight; Macrocytosis 1+; Ovalocytes Few; Poikilocytosis Slight; Tear Drop Cells Few
[2021-07-21] MEDS ORDERED: KETAMINE 500 MG/10 ML VIAL ONE (07:36)
[2021-07-21] MEDS ORDERED: SODIUM CHLORIDE 0.9% 100 ML IV ONE (08:18)
[2021-07-21] MEDS: INSULIN REGULAR 100 UNIT/ML SUBCUT SCH ×4 (08:48→21:07)
[2021-07-21] MEDS: DOCUSATE SODIUM 100 MG CAPSULE PO SCH ×2 (10:58→21:06)
[2021-07-21] MEDS: ROSUVASTATIN 20 MG TABLET PO SCH (10:58)
[2021-07-21] MEDS: metOLazone 5 MG TABLET PO SCH (10:58)
[2021-07-21] MEDS: AMIODARONE 200 MG TABLET PO SCH ×2 (10:59→21:06)
[2021-07-21] MEDS: ASCORBIC ACID 500 MG TABLET PO SCH ×2 (11:00→21:06)
[2021-07-21] MEDS: allopurinoL 100 MG TABLET PO SCH (11:00)
[2021-07-21] MEDS: amLODIPine 10 MG TABLET PO SCH (11:00)
[2021-07-21] MEDS: ASPIRIN EC 81 MG TABLET PO SCH (11:00)
[2021-07-21] MEDS: FERROUS SULFATE 325 MG TABLET PO SCH (11:00)
[2021-07-21] MEDS: METOPROLOL TARTRATE 25 MG TABLET PO SCH ×2 (11:00→21:05)
[2021-07-21] MEDS: POLYETHYLENE GLYCOL POWDER 17 GM PACK PO SCH ×2 (11:01→21:08)
[2021-07-21] MEDS: PANTOPRAZOLE 40 MG TABLET PO SCH (11:35)
[2021-07-21] MEDS: DILTIAZEM INJ 100 MG in SODIUM CHLORIDE 0.9% 100 ML IV SCH (13:25)
[2021-07-21] MEDS: cefTRIAXone 1,000 MG in SODIUM CHLORIDE 0.9% 100 ML IV SCH (13:40)
[2021-07-21] MEDS: INSULIN GLARGINE 100 UNIT/ML SUBCUT SCH (21:04)
[2021-07-21] MEDS: TERAZOSIN 5 MG CAPSULE PO SCH (21:05)
[2021-07-22] MEDS: ALBUTEROL/IPRATROPIUM 3 ML NEB RESP TX SCH ×7 (00:30→23:36)
[2021-07-22] MEDS: FUROSEMIDE 40 MG/4 ML VIAL IV SCH ×3 (05:23→23:39)
[2021-07-22 07:00] LABS: Hematocrit 23.5 VOL% (42.0-52.0); Hemoglobin 7.5 GM/DL (14.0-18.0)
[2021-07-22 07:30] LABS: Albumin 2.5 G/DL (3.4-5.0); Calcium 8.8 MG/DL (8.5-10.1); Osmolality,Calculated 322.1 MOS/KG (273-304); Potassium 5.2 MMOL/L (3.5-5.1); Total Protein 6.9 G/DL (6.4-8.2)
[2021-07-22] MEDS: PANTOPRAZOLE 40 MG VIAL IV SCH ×2 (08:17→23:39)
[2021-07-22] MEDS: INSULIN REGULAR 100 UNIT/ML SUBCUT SCH ×3 (08:40→16:14)
[2021-07-22 09:16] LABS: Hepatitis B Core IgM Quant 0.08 Index; Hepatitis B Surface Ag Quant < 0.10 Index; Hepatitis B Surface Ag Result Non-Reactive (NonReactive); Hepatitis C Virus Ab Quant 0.09 Index; Hepatitis C Virus Ab Result Non-Reactive (NonReactive)
[2021-07-22] MEDS ORDERED: HEPARIN 10,000 UNIT/10 ML VIAL IV SCH (10:45)
[2021-07-22] MEDS: POLYETHYLENE GLYCOL POWDER 17 GM PACK PO SCH ×2 (11:28→23:46)
[2021-07-22] MEDS: DOCUSATE SODIUM 100 MG CAPSULE PO SCH ×2 (12:16→23:38)
[2021-07-22] MEDS: METOPROLOL TARTRATE 25 MG TABLET PO SCH (12:17)
[2021-07-22] MEDS: ASCORBIC ACID 500 MG TABLET PO SCH ×2 (12:17→23:38)
[2021-07-22] MEDS: AMIODARONE 200 MG TABLET PO SCH ×2 (12:17→23:39)
[2021-07-22] MEDS: FERROUS SULFATE 325 MG TABLET PO SCH (12:29)
[2021-07-22] MEDS: metOLazone 5 MG TABLET PO SCH (12:29)
[2021-07-22] MEDS: allopurinoL 100 MG TABLET PO SCH (12:29)
[2021-07-22] MEDS: amLODIPine 10 MG TABLET PO SCH (12:30)
[2021-07-22] MEDS: ASPIRIN EC 81 MG TABLET PO SCH (12:30)
[2021-07-22] MEDS: ROSUVASTATIN 20 MG TABLET PO SCH (12:30)
[2021-07-22] MEDS: DILTIAZEM INJ 100 MG in SODIUM CHLORIDE 0.9% 100 ML IV SCH (13:34)
[2021-07-22] MEDS: cefTRIAXone 1,000 MG in SODIUM CHLORIDE 0.9% 100 ML IV SCH (14:58)
[2021-07-22 16:00] LABS: Hemoglobin 7.4 GM/DL (14.0-18.0)
[2021-07-22] MEDS ORDERED: BENZONATATE 100 MG CAPSULE PO PRN (18:34)
[2021-07-22] MEDS: TERAZOSIN 5 MG CAPSULE PO SCH (23:38)
[2021-07-23] MEDS: INSULIN GLARGINE 100 UNIT/ML SUBCUT SCH ×2 (00:11→21:12)
[2021-07-23] MEDS: METOPROLOL TARTRATE 25 MG TABLET PO SCH ×3 (00:11→21:12)
[2021-07-23] MEDS: INSULIN REGULAR 100 UNIT/ML SUBCUT SCH ×5 (00:11→20:20)
[2021-07-23 01:12] LABS: ABG Base Excess 0.9 MMOL/L (-2.5-2.5); ABG HCO3 25.1 MMOL/L (20-26); ABG PCO2 60.9 MM HG (35-48); ABG PH 7.277 (7.35-7.45); ABG TCO2 27.1 MMOL/L (23-27)
[2021-07-23 01:14] LABS: Basophils % 0.1 % (0.0-0.8); Eosinophils % 0.1 % (0.00-10.9); Hematocrit 21.7 VOL% (42.0-52.0); Hemoglobin 6.9 GM/DL (14.0-18.0); Immature Granulocytes % 0.7 %; Immature Granulocytes Absolute 0.07 #; Lymphocytes # 0.4 10*3/uL (1.4-4.0); Lymphocytes % 3.8 % (21.2-54.2); Mean Corpuscular HGB Conc 31.8 GM/DL (32-36); Mean Corpuscular Volume 83.8 FL (87-102); Mean Platelet Volume 11.1 FL (9.6-12.0); Monocytes % 8.4 % (1.7-12.7); NRBC # 0.06 10*3/uL; Neutrophils % 86.9 % (38.7-73.9); Platelet Count 189 T/CUMM (130-400); Red Blood Count 2.59 MC/CUMM (3.8-5.5); White Blood Count 9.4 T/CUMM (4-12)
[2021-07-23] MEDS ORDERED: SODIUM CHLORIDE 0.9% 1,000 ML IV PRN (01:22)
[2021-07-23 01:31] LABS: Calcium 8.4 MG/DL (8.5-10.1); Osmolality,Calculated 308.1 MOS/KG (273-304); Potassium 4.8 MMOL/L (3.5-5.1)
[2021-07-23 01:54] LABS: Hypochromasia 1+; Lymphocytes 2 % (20-55); Platelet Estimate Normal; Segmented Neutrophils 94 % (50-85); Total Cells Counted 100
[2021-07-23 02:48] LABS: INR 1.2; PT Patient Result 13.6 SECS (10.5-12.0); Partial Thromboplastin Time 29.3 SECS (23.9-33.8)
[2021-07-23 04:45] LABS: ABG Base Excess 0.5 MMOL/L (-2.5-2.5); ABG HCO3 24.8 MMOL/L (20-26); ABG Oxygen Saturation 90.4 % (95-100); ABG PCO2 57.5 MM HG (35-48); ABG PH 7.289 (7.35-7.45); ABG PO2 65.3 MM HG (80-95); ABG TCO2 26.4 MMOL/L (23-27); Allen Test Positive; Pt O2 Delivery Device BIPAP
[2021-07-23 06:23] LABS: Hematocrit 21.4 VOL% (42.0-52.0); Hemoglobin 6.8 GM/DL (14.0-18.0)
[2021-07-23 06:46] LABS: Albumin 2.4 G/DL (3.4-5.0); Bilirubin,Total 0.4 MG/DL (0.20-1.00); Calcium 8.8 MG/DL (8.5-10.1); Osmolality,Calculated 307.2 MOS/KG (273-304); Potassium 4.9 MMOL/L (3.5-5.1); Total Protein 6.4 G/DL (6.4-8.2)
[2021-07-23] MEDS: ALBUTEROL/IPRATROPIUM 3 ML NEB RESP TX SCH ×3 (07:50→20:05)
[2021-07-23] MEDS: FUROSEMIDE 40 MG/4 ML VIAL IV SCH ×2 (08:51→17:50)
[2021-07-23] MEDS: PANTOPRAZOLE 40 MG VIAL IV SCH ×2 (08:54→21:12)
[2021-07-23 11:54] LABS: ABG Base Excess 2.1 MMOL/L (-2.5-2.5); ABG HCO3 26.3 MMOL/L (20-26); ABG Oxygen Saturation 93.6 % (95-100); ABG PCO2 46.7 MM HG (35-48); ABG PO2 67.1 MM HG (80-95); ABG TCO2 25.8 MMOL/L (23-27)
[2021-07-23] MEDS ORDERED: LIDOCAINE 2% 20 ML VIAL MISC INJ ONE (12:49)
[2021-07-23] MEDS: SODIUM CHLORIDE 0.9% 500 ML IV SCH ×2 (14:00→21:13)
[2021-07-23] MEDS: DOCUSATE SODIUM 100 MG CAPSULE PO SCH ×2 (14:01→21:12)
[2021-07-23] MEDS: ASPIRIN EC 81 MG TABLET PO SCH (14:01)
[2021-07-23] MEDS: amLODIPine 10 MG TABLET PO SCH (14:01)
[2021-07-23] MEDS: AMIODARONE 200 MG TABLET PO SCH ×2 (14:01→21:11)
[2021-07-23] MEDS: ROSUVASTATIN 20 MG TABLET PO SCH (14:01)
[2021-07-23] MEDS: ASCORBIC ACID 500 MG TABLET PO SCH ×2 (14:01→21:11)
[2021-07-23] MEDS: FERROUS SULFATE 325 MG TABLET PO SCH (14:01)
[2021-07-23] MEDS: POLYETHYLENE GLYCOL POWDER 17 GM PACK PO SCH ×2 (14:01→21:12)
[2021-07-23] MEDS: metOLazone 5 MG TABLET PO SCH (14:02)
[2021-07-23] MEDS: allopurinoL 100 MG TABLET PO SCH (14:02)
[2021-07-23] MEDS: DILTIAZEM INJ 100 MG in SODIUM CHLORIDE 0.9% 100 ML IV SCH (14:02)
[2021-07-23 14:28] LABS: Hematocrit 24.1 VOL% (42.0-52.0); Hemoglobin 7.8 GM/DL (14.0-18.0)
[2021-07-23] MEDS: cefTRIAXone 1,000 MG in SODIUM CHLORIDE 0.9% 100 ML IV SCH (14:28)
[2021-07-23] MEDS: TERAZOSIN 5 MG CAPSULE PO SCH (21:12)
[2021-07-24] MEDS: ALBUTEROL/IPRATROPIUM 3 ML NEB RESP TX SCH ×8 (00:13→20:12)
[2021-07-24 05:43] LABS: Basophils % 0.1 % (0.0-0.8); Eosinophils % 0.1 % (0.00-10.9); Hematocrit 20.8 VOL% (42.0-52.0); Hemoglobin 6.8 GM/DL (14.0-18.0); Immature Granulocytes % 0.9 %; Immature Granulocytes Absolute 0.09 #; Lymphocytes # 0.4 10*3/uL (1.4-4.0); Mean Corpuscular HGB Conc 32.7 GM/DL (32-36); Mean Corpuscular Volume 84.6 FL (87-102); Monocytes % 8.6 % (1.7-12.7); NRBC # 0.05 10*3/uL; Neutrophils % 86.3 % (38.7-73.9); Platelet Count 165 T/CUMM (130-400); Red Blood Count 2.46 MC/CUMM (3.8-5.5); Red Cell Distribution Width 18.1 % (9.3-17.3); White Blood Count 10.3 T/CUMM (4-12)
[2021-07-24 05:49] LABS: Hypochromasia 1+; Lymphocytes 3 % (20-55); Microcytosis 1+; Ovalocytes Slight; Platelet Estimate Adequate; Segmented Neutrophils 91 % (50-85); Total Cells Counted 100
[2021-07-24 05:51] LABS: Albumin 2.1 G/DL (3.4-5.0); Bilirubin,Total 0.5 MG/DL (0.20-1.00); Calcium 8.2 MG/DL (8.5-10.1); Osmolality,Calculated 299.8 MOS/KG (273-304); Total Protein 6.2 G/DL (6.4-8.2)
[2021-07-24] MEDS ORDERED: SODIUM CHLORIDE 0.9% 1,000 ML IV PRN (08:05)
[2021-07-24] MEDS ORDERED: DESMOPRESSIN 4 MCG/1 ML AMP IV ONE (10:46)
[2021-07-24] MEDS ORDERED: DEXTROSE 50% 25 GM/50 ML VIAL IV PRN (10:58)
[2021-07-24] MEDS: INSULIN REGULAR 100 UNIT/ML SUBCUT SCH ×4 (11:06→20:46)
[2021-07-24] MEDS: SODIUM CHLORIDE 0.9% 500 ML IV SCH (11:07)
[2021-07-24] MEDS ORDERED: DESMOPRESSIN INJ 40 MCG in SODIUM CHLORIDE 0.9% 50 ML IV ONE (12:00)
[2021-07-24] MEDS: ASPIRIN EC 81 MG TABLET PO SCH (15:17)
[2021-07-24] MEDS: METOPROLOL TARTRATE 25 MG TABLET PO SCH ×2 (15:17→20:43)
[2021-07-24] MEDS: AMIODARONE 200 MG TABLET PO SCH ×2 (15:17→20:43)
[2021-07-24] MEDS: ASCORBIC ACID 500 MG TABLET PO SCH ×2 (15:17→20:43)
[2021-07-24] MEDS: allopurinoL 100 MG TABLET PO SCH (15:18)
[2021-07-24] MEDS: DOCUSATE SODIUM 100 MG CAPSULE PO SCH ×2 (15:18→20:43)
[2021-07-24] MEDS: FERROUS SULFATE 325 MG TABLET PO SCH (15:18)
[2021-07-24] MEDS: POLYETHYLENE GLYCOL POWDER 17 GM PACK PO SCH ×2 (15:18→20:43)
[2021-07-24] MEDS: ROSUVASTATIN 20 MG TABLET PO SCH (15:18)
[2021-07-24] MEDS: PANTOPRAZOLE 40 MG VIAL IV SCH ×2 (15:19→20:44)
[2021-07-24] MEDS: DILTIAZEM INJ 100 MG in SODIUM CHLORIDE 0.9% 100 ML IV SCH (15:35)
[2021-07-24] MEDS: amLODIPine 10 MG TABLET PO SCH (15:43)
[2021-07-24 16:17] LABS: Hematocrit 24.7 VOL% (42.0-52.0)
[2021-07-24 16:20] LABS: Hemoglobin 8.2 GM/DL (14.0-18.0)
[2021-07-24] MEDS: QUEtiapine 25 MG TABLET PO SCH (16:49)
[2021-07-24] MEDS: cefTRIAXone 1,000 MG in SODIUM CHLORIDE 0.9% 100 ML IV SCH (17:28)
[2021-07-24] MEDS: INSULIN GLARGINE 100 UNIT/ML SUBCUT SCH (20:46)
[2021-07-24] MEDS ORDERED: LORazepam 2 MG/1 ML VIAL IV ONE (23:09)
[2021-07-25] MEDS: ALBUTEROL/IPRATROPIUM 3 ML NEB RESP TX SCH ×6 (00:15→19:54)
[2021-07-25 05:57] LABS: Basophils % 0.1 % (0.0-0.8); Eosinophils # 0.1 10*3/uL (0.0-0.87); Eosinophils % 0.8 % (0.00-10.9); Hematocrit 23.2 VOL% (42.0-52.0); Hemoglobin 7.5 GM/DL (14.0-18.0); Immature Granulocytes % 0.9 %; Immature Granulocytes Absolute 0.09 #; Lymphocytes # 0.7 10*3/uL (1.4-4.0); Lymphocytes % 7.1 % (21.2-54.2); Mean Corpuscular HGB Conc 32.3 GM/DL (32-36); Mean Corpuscular Volume 87.2 FL (87-102); Mean Platelet Volume 11.1 FL (9.6-12.0); NRBC # 0.05 10*3/uL; Neutrophils % 80.1 % (38.7-73.9); Platelet Count 154 T/CUMM (130-400); Red Blood Count 2.66 MC/CUMM (3.8-5.5); Red Cell Distribution Width 18.4 % (9.3-17.3); White Blood Count 10.1 T/CUMM (4-12)
[2021-07-25 06:49] LABS: Albumin 2.1 G/DL (3.4-5.0); Bilirubin,Total 0.5 MG/DL (0.20-1.00); Calcium 8.5 MG/DL (8.5-10.1); Osmolality,Calculated 285.5 MOS/KG (273-304); Potassium 4.2 MMOL/L (3.5-5.1); Total Protein 6.1 G/DL (6.4-8.2)
[2021-07-25] MEDS: SODIUM CHLORIDE 0.9% 500 ML IV SCH ×2 (08:30→11:40)
[2021-07-25] MEDS ORDERED: LIDOCAINE 2% 5 ML VIAL ONE (08:55)
[2021-07-25] MEDS ORDERED: propofoL 200 MG/20 ML VIAL IV ONE (08:55)
[2021-07-25] MEDS ORDERED: DEXTROSE 50% 25 GM/50 ML VIAL IV PRN (09:09)
[2021-07-25] MEDS: INSULIN REGULAR 100 UNIT/ML SUBCUT SCH ×4 (11:39→21:16)
[2021-07-25] MEDS: ASCORBIC ACID 500 MG TABLET PO SCH ×2 (14:07→21:15)
[2021-07-25] MEDS: PANTOPRAZOLE 40 MG VIAL IV SCH ×2 (14:07→21:16)
[2021-07-25] MEDS: ASPIRIN EC 81 MG TABLET PO SCH (14:07)
[2021-07-25] MEDS: METOPROLOL TARTRATE 25 MG TABLET PO SCH ×2 (14:07→21:15)
[2021-07-25] MEDS: AMIODARONE 200 MG TABLET PO SCH ×2 (14:07→21:15)
[2021-07-25] MEDS: allopurinoL 100 MG TABLET PO SCH (14:07)
[2021-07-25] MEDS: DOCUSATE SODIUM 100 MG CAPSULE PO SCH ×2 (14:07→21:14)
[2021-07-25] MEDS: FERROUS SULFATE 325 MG TABLET PO SCH (14:08)
[2021-07-25] MEDS: POLYETHYLENE GLYCOL POWDER 17 GM PACK PO SCH ×2 (14:08→21:14)
[2021-07-25] MEDS: QUEtiapine 25 MG TABLET PO SCH ×2 (14:08→21:16)
[2021-07-25] MEDS: ROSUVASTATIN 20 MG TABLET PO SCH (14:08)
[2021-07-25] MEDS: cefTRIAXone 1,000 MG in SODIUM CHLORIDE 0.9% 100 ML IV SCH (14:10)
[2021-07-25] MEDS: DILTIAZEM INJ 100 MG in SODIUM CHLORIDE 0.9% 100 ML IV SCH (17:05)
[2021-07-25] MEDS: INSULIN GLARGINE 100 UNIT/ML SUBCUT SCH (21:17)
[2021-07-26] MEDS: ALBUTEROL/IPRATROPIUM 3 ML NEB RESP TX SCH ×6 (02:14→23:55)
[2021-07-26 06:15] LABS: Basophils % 0.1 % (0.0-0.8); Eosinophils # 0.1 10*3/uL (0.0-0.87); Eosinophils % 1.3 % (0.00-10.9); Hematocrit 25.6 VOL% (42.0-52.0); Immature Granulocytes % 0.8 %; Immature Granulocytes Absolute 0.08 #; Lymphocytes # 0.5 10*3/uL (1.4-4.0); Lymphocytes % 5.4 % (21.2-54.2); Mean Corpuscular HGB Conc 31.3 GM/DL (32-36); Mean Corpuscular Volume 89.2 FL (87-102); Mean Platelet Volume 11.2 FL (9.6-12.0); Monocytes % 8.3 % (1.7-12.7); NRBC # 0.08 10*3/uL; Neutrophils % 84.1 % (38.7-73.9); Platelet Count 163 T/CUMM (130-400); Red Blood Count 2.87 MC/CUMM (3.8-5.5); Red Cell Distribution Width 18.7 % (9.3-17.3)
[2021-07-26 06:36] LABS: Albumin 2.2 G/DL (3.4-5.0); Bilirubin,Total 1.2 MG/DL (0.20-1.00); Calcium 8.6 MG/DL (8.5-10.1); Osmolality,Calculated 282.8 MOS/KG (273-304); Potassium 3.8 MMOL/L (3.5-5.1); Total Protein 6.5 G/DL (6.4-8.2)
[2021-07-26] MEDS: INSULIN REGULAR 100 UNIT/ML SUBCUT SCH ×4 (08:21→21:45)
[2021-07-26] MEDS: allopurinoL 100 MG TABLET PO SCH (10:30)
[2021-07-26] MEDS: ASCORBIC ACID 500 MG TABLET PO SCH ×2 (10:30→21:47)
[2021-07-26] MEDS: PANTOPRAZOLE 40 MG VIAL IV SCH ×2 (10:30→21:46)
[2021-07-26] MEDS: POLYETHYLENE GLYCOL POWDER 17 GM PACK PO SCH ×2 (10:30→21:44)
[2021-07-26] MEDS: DOCUSATE SODIUM 100 MG CAPSULE PO SCH ×2 (10:30→21:46)
[2021-07-26] MEDS: AMIODARONE 200 MG TABLET PO SCH ×2 (10:30→21:47)
[2021-07-26] MEDS: ASPIRIN EC 81 MG TABLET PO SCH (10:30)
[2021-07-26] MEDS: FERROUS SULFATE 325 MG TABLET PO SCH (10:30)
[2021-07-26] MEDS: ROSUVASTATIN 20 MG TABLET PO SCH (10:30)
[2021-07-26] MEDS: QUEtiapine 25 MG TABLET PO SCH ×2 (10:30→21:47)
[2021-07-26] MEDS: METOPROLOL TARTRATE 25 MG TABLET PO SCH ×2 (10:30→21:46)
[2021-07-26 10:39] LABS: Basophils % 0.1 % (0.0-0.8); Eosinophils # 0.1 10*3/uL (0.0-0.87); Eosinophils % 1.3 % (0.00-10.9); Hematocrit 24.2 VOL% (42.0-52.0); Hemoglobin 7.7 GM/DL (14.0-18.0); Lymphocytes # 0.6 10*3/uL (1.4-4.0); Mean Corpuscular HGB Conc 31.8 GM/DL (32-36); Mean Corpuscular Volume 87.1 FL (87-102); Mean Platelet Volume 10.1 FL (9.6-12.0); Monocytes % 7.8 % (1.7-12.7); NRBC # 0.09 10*3/uL; Neutrophils % 83.8 % (38.7-73.9); Platelet Count 150 T/CUMM (130-400); Red Blood Count 2.78 MC/CUMM (3.8-5.5); Red Cell Distribution Width 18.5 % (9.3-17.3); White Blood Count 10.4 T/CUMM (4-12)
[2021-07-26] MEDS: SODIUM CHLORIDE 0.9% 500 ML IV SCH ×2 (11:17)
[2021-07-26] MEDS: DILTIAZEM INJ 100 MG in SODIUM CHLORIDE 0.9% 100 ML IV SCH (14:03)
[2021-07-26] MEDS: cefTRIAXone 1,000 MG in SODIUM CHLORIDE 0.9% 100 ML IV SCH (15:45)
[2021-07-26] MEDS: INSULIN GLARGINE 100 UNIT/ML SUBCUT SCH (21:45)
[2021-07-27] MEDS: ALBUTEROL/IPRATROPIUM 3 ML NEB RESP TX SCH ×5 (03:42→20:00)
[2021-07-27 05:02] LABS: Basophils % 0.2 % (0.0-0.8); Eosinophils # 0.1 10*3/uL (0.0-0.87); Eosinophils % 1.1 % (0.00-10.9); Hematocrit 23.8 VOL% (42.0-52.0); Hemoglobin 7.4 GM/DL (14.0-18.0); Immature Granulocytes % 1.2 %; Immature Granulocytes Absolute 0.12 #; Lymphocytes # 0.6 10*3/uL (1.4-4.0); Lymphocytes % 6.2 % (21.2-54.2); Mean Corpuscular HGB Conc 31.1 GM/DL (32-36); Mean Corpuscular Volume 87.2 FL (87-102); Mean Platelet Volume 10.5 FL (9.6-12.0); Monocytes % 9.2 % (1.7-12.7); NRBC # 0.11 10*3/uL; Neutrophils % 82.1 % (38.7-73.9); Platelet Count 156 T/CUMM (130-400); Red Blood Count 2.73 MC/CUMM (3.8-5.5); Red Cell Distribution Width 18.3 % (9.3-17.3); White Blood Count 9.9 T/CUMM (4-12)
[2021-07-27 05:29] LABS: Albumin 2.1 G/DL (3.4-5.0); Bilirubin,Total 0.6 MG/DL (0.20-1.00); Calcium 8.1 MG/DL (8.5-10.1); Osmolality,Calculated 282.8 MOS/KG (273-304); Potassium 3.8 MMOL/L (3.5-5.1); Total Protein 6.3 G/DL (6.4-8.2)
[2021-07-27] MEDS: SODIUM CHLORIDE 0.9% 500 ML IV SCH ×2 (08:41→08:44)
[2021-07-27] MEDS: INSULIN REGULAR 100 UNIT/ML SUBCUT SCH ×4 (09:47→23:21)
[2021-07-27] MEDS: ASPIRIN EC 81 MG TABLET PO SCH (09:47)
[2021-07-27] MEDS: DOCUSATE SODIUM 100 MG CAPSULE PO SCH ×2 (09:47→23:17)
[2021-07-27] MEDS: POLYETHYLENE GLYCOL POWDER 17 GM PACK PO SCH ×2 (09:48→23:20)
[2021-07-27] MEDS: AMIODARONE 200 MG TABLET PO SCH ×2 (09:48→23:18)
[2021-07-27] MEDS: ASCORBIC ACID 500 MG TABLET PO SCH ×2 (09:48→23:17)
[2021-07-27] MEDS: QUEtiapine 25 MG TABLET PO SCH ×2 (09:48→23:18)
[2021-07-27] MEDS: allopurinoL 100 MG TABLET PO SCH (09:48)
[2021-07-27] MEDS: METOPROLOL TARTRATE 25 MG TABLET PO SCH ×2 (09:48→23:17)
[2021-07-27] MEDS: ROSUVASTATIN 20 MG TABLET PO SCH (09:48)
[2021-07-27] MEDS: FERROUS SULFATE 325 MG TABLET PO SCH (09:48)
[2021-07-27] MEDS: PANTOPRAZOLE 40 MG VIAL IV SCH ×2 (09:48→23:22)
[2021-07-27] MEDS ORDERED: QUEtiapine 25 MG TABLET PO ONE (13:29)
[2021-07-27] MEDS: DILTIAZEM INJ 100 MG in SODIUM CHLORIDE 0.9% 100 ML IV SCH (13:49)
[2021-07-27] MEDS: cefTRIAXone 1,000 MG in SODIUM CHLORIDE 0.9% 100 ML IV SCH (14:04)
[2021-07-27] MEDS: INSULIN GLARGINE 100 UNIT/ML SUBCUT SCH (23:21)
[2021-07-28] MEDS: ALBUTEROL/IPRATROPIUM 3 ML NEB RESP TX SCH ×7 (00:07→20:58)
[2021-07-28 05:33] LABS: Hematocrit 24.5 VOL% (42.0-52.0); Hemoglobin 7.8 GM/DL (14.0-18.0)
[2021-07-28 06:14] LABS: Albumin 2.3 G/DL (3.4-5.0); Bilirubin,Total 0.4 MG/DL (0.20-1.00); Calcium 8.3 MG/DL (8.5-10.1); Potassium 3.8 MMOL/L (3.5-5.1); Total Protein 6.7 G/DL (6.4-8.2)
[2021-07-28] MEDS: SODIUM CHLORIDE 0.9% 500 ML IV SCH ×2 (08:49)
[2021-07-28] MEDS: INSULIN REGULAR 100 UNIT/ML SUBCUT SCH ×4 (08:49→21:08)
[2021-07-28] MEDS: DOCUSATE SODIUM 100 MG CAPSULE PO SCH ×2 (09:50→21:08)
[2021-07-28] MEDS: ASPIRIN EC 81 MG TABLET PO SCH (09:50)
[2021-07-28] MEDS: PANTOPRAZOLE 40 MG VIAL IV SCH ×2 (09:51→21:09)
[2021-07-28] MEDS: ROSUVASTATIN 20 MG TABLET PO SCH (09:51)
[2021-07-28] MEDS: AMIODARONE 200 MG TABLET PO SCH ×2 (09:51→21:07)
[2021-07-28] MEDS: FERROUS SULFATE 325 MG TABLET PO SCH (09:51)
[2021-07-28] MEDS: ASCORBIC ACID 500 MG TABLET PO SCH ×2 (09:51→21:07)
[2021-07-28] MEDS: POLYETHYLENE GLYCOL POWDER 17 GM PACK PO SCH ×2 (09:51→21:09)
[2021-07-28] MEDS: QUEtiapine 25 MG TABLET PO SCH ×2 (09:51→21:07)
[2021-07-28] MEDS: allopurinoL 100 MG TABLET PO SCH (09:51)
[2021-07-28] MEDS: METOPROLOL TARTRATE 25 MG TABLET PO SCH ×2 (09:51→21:07)
[2021-07-28] MEDS: DILTIAZEM INJ 100 MG in SODIUM CHLORIDE 0.9% 100 ML IV SCH (12:59)
[2021-07-28] MEDS ORDERED: LORazepam 2 MG/1 ML VIAL IV PRN (20:28)
[2021-07-28] MEDS: INSULIN GLARGINE 100 UNIT/ML SUBCUT SCH (21:08)
[2021-07-29] MEDS: ALBUTEROL/IPRATROPIUM 3 ML NEB RESP TX SCH ×7 (01:22→23:35)
[2021-07-29 06:12] LABS: Hematocrit 25.3 VOL% (42.0-52.0); Hemoglobin 7.9 GM/DL (14.0-18.0)
[2021-07-29 06:40] LABS: Calcium 8.4 MG/DL (8.5-10.1); Osmolality,Calculated 286.8 MOS/KG (273-304); Potassium 4.2 MMOL/L (3.5-5.1)
[2021-07-29] MEDS: SODIUM CHLORIDE 0.9% 500 ML IV SCH ×2 (08:02)
[2021-07-29] MEDS: PANTOPRAZOLE 40 MG VIAL IV SCH ×2 (10:16→20:46)
[2021-07-29] MEDS: INSULIN REGULAR 100 UNIT/ML SUBCUT SCH ×4 (10:16→20:46)
[2021-07-29] MEDS: ASPIRIN EC 81 MG TABLET PO SCH (10:17)
[2021-07-29] MEDS: QUEtiapine 25 MG TABLET PO SCH ×2 (10:17→20:45)
[2021-07-29] MEDS: allopurinoL 100 MG TABLET PO SCH (10:17)
[2021-07-29] MEDS: ASCORBIC ACID 500 MG TABLET PO SCH ×2 (10:17→20:44)
[2021-07-29] MEDS: DOCUSATE SODIUM 100 MG CAPSULE PO SCH ×2 (10:17→20:44)
[2021-07-29] MEDS: ROSUVASTATIN 20 MG TABLET PO SCH (10:17)
[2021-07-29] MEDS: FERROUS SULFATE 325 MG TABLET PO SCH (10:17)
[2021-07-29] MEDS ORDERED: HEPARIN 5,000 UNIT/1 ML VIAL SUBCUT SCH (10:30)
[2021-07-29] MEDS: METOPROLOL TARTRATE 25 MG TABLET PO SCH ×2 (14:06→20:45)
[2021-07-29] MEDS: DILTIAZEM INJ 100 MG in SODIUM CHLORIDE 0.9% 100 ML IV SCH (14:07)
[2021-07-29] MEDS: AMIODARONE 200 MG TABLET PO SCH ×2 (14:07→20:45)
[2021-07-29] MEDS: POLYETHYLENE GLYCOL POWDER 17 GM PACK PO SCH ×2 (14:07→20:45)
[2021-07-29] MEDS ORDERED: HEPARIN DRIP 25,000 UNITS/500 ML PREMIX IV SCH (18:00)
[2021-07-29] MEDS: INSULIN GLARGINE 100 UNIT/ML SUBCUT SCH (20:45)
[2021-07-30] MEDS: ALBUTEROL/IPRATROPIUM 3 ML NEB RESP TX SCH ×2 (05:35→07:11)
[2021-07-30 05:49] LABS: Osmolality,Calculated 275.1 MOS/KG (273-304)
[2021-07-30 06:13] LABS: Hematocrit 26.5 VOL% (42.0-52.0)
[2021-07-30 10:27] VITALS: BP 139/47
== END 2021-07-30 09:17 | disposition expired | DRG 673 ==
LOC: N.ED 19:21 → N.EDINP 07-16 03:06 → SUATTDRO 07-16 03:06 → N.EDINP 07-16 05:43 → N.TELES 07-16 05:50
PROVIDERS: ADMIT Internal Medicine; ATTEND Internal Medicine